=== PATIENT | female | born 1975 | race Caucasian/White ===

== ENCOUNTER → 2020-02-16 10:32 | Outpatient (CLI) | payer OTHER, SELFPAY ==
--- NOTE | ~2020-02-16 | MM_ITS ---
EXAMINATION: MM screening see BI w arnaldo HISTORY: Screening mammogram TECHNIQUE: Craniocaudal and mediolateral oblique 3-D tomosynthesis images were obtained and synthetic 2-D images were generated. CAD analysis was submitted and interpreted. COMPARISON: Comparison to multiple prior studies sequentially, with oldest reviewed study dated 05/15. BREAST PARENCHYMAL COMPOSITION: There are scattered areas of fibroglandular density. FINDINGS: There is a focal asymmetry anteriorly in the upper outer quadrant of the left breast. The r ight breast is stable without evidence for malignancy. IMPRESSION: 1. Focal left breast asymmetry, upper outer quadrant anteriorly. 2. Additional mammographic views and possible breast ultrasound are recommended. BI-RADS Category 0: Incomplete: Needs additional imaging evaluation. Reviewed, dictated and finalized at location A. IMPRESSION: 1. Focal left breast asymmetry, upper outer quadrant anteriorly. 2. Additional mammographic views and possible breast ultrasound are recommended . BI-RADS Category 0: Incomplete: Needs additional imaging evaluation.
== END ==
PROVIDERS: Visit Provider Obstetrics & Gynecology
DX: Z12.31 Encounter for screening mammogram for malignant neoplasm of breast (principal); R92.8 Other abnormal and inconclusive findings on diagnostic imaging of breast
CPT/HCPCS: 77063; 77067

== ENCOUNTER 2020-02-23 11:48 | Outpatient (CLI) | payer OTHER, SELFPAY ==
--- NOTE | ~2020-02-23 | MMUS_ITS ---
EXAMINATION: MM diagnostic mammo unilat LT, US breast LT complete HISTORY: Focal left breast mammographic asymmetry, upper outer quadrant anteriorly on 02/16/2020 [facility] mammogram TECHNIQUE: Additional 3-D tomosynthesis images of were performed and synthetic 2-D images were genera zofia. CAD analysis was submitted and interpreted. High resolution breast ultrasound was performed. COMPARISON: 02/16/2020 bilateral digital screening mammogram FINDINGS: MAMMOGRAPHIC FINDINGS: Occasional subcentimeter masses are suggested in the left breast. Ultrasound correlation of the compl ete left breast was performed. ULTRASOUND: 8:00 3 cm from nipple: 4.6 x 8.2 x 7.5 mm multi septated cysts, without any internal vascularity. Subareolar area: Approximately 2.5 x 8.5 mm septated cystic structure, without internal vascularity o r suspicious shadowing. IMPRESSION: 1. Benign findings 2. Routine annual mammographic screening follow-up is recommended. BI-RADS Category 2: Benign finding(s). Reviewed, dictated and finalized at location A. IMPRESSION: 1. Benign findings 2. Routine annual mammographic screening follow-up is recommended. BI-RADS Category 2: Benign finding(s).
== END 2020-02-23 11:49 | disposition home or self-care (01) ==
PROVIDERS: PCP Family Medicine; Visit Provider Obstetrics & Gynecology
DX: R92.8 Other abnormal and inconclusive findings on diagnostic imaging of breast (principal)
CPT/HCPCS: 76641; 77065

== ENCOUNTER 2020-08-17 10:52 | Outpatient (NON) | payer OTHER, SELFPAY ==
[2020-08-17 22:02] LABS: SARS-CoV-2 RNA PCR Negative
== END 2020-08-17 10:53 ==
PROVIDERS: PCP Family Medicine; Visit Provider Nurse Practitioner Adult Health
DX: Z20.828 Contact with and (suspected) exposure to other viral communicable diseases (principal)
CPT/HCPCS: 87635; C9803; U0003

== ENCOUNTER 2021-01-27 12:20 | Outpatient (CLI) | payer OTHER, SELFPAY ==
--- NOTE | ~2021-01-27 | MMUS_ITS ---
EXAMINATION: MM diagnostic see BI w arnaldo, US breast BI limited HISTORY: Left mastodynia TECHNIQUE: Craniocaudal, mediolateral, and mediolateral oblique 3-D tomosynthesis images of the breas ts were performed and synthetic 2-D images were generated. CAD analysis was submitted and interpreted . High resolution limited bilateral breast ultrasound was performed. COMPARISON: 02/23/2020, 02/16/2020, 11/06/2018, 10/24/2018 BREAST PARENCHYMAL COMPOSITION: There are scattered areas of fibroglandular density. FINDINGS: MAMMOGRAPHIC FINDINGS: Right breast: There is a 4 mm obscured oval low-density mass in the middle third of the outer breast at the 9:00 location 4 cm from the nipple. No suspicious calcification or architectural distortion ar e identified. Left breast: There is no evidence of suspicious mass, calcification, or architectural distortion to suggest malignancy. There has been no suspicious interval change. No mammographic correlate is identi fied for the patient's reported left breast pain. ULTRASOUND: Right breast: There is a 4 mm x 3 mm oval, circumscribed, parallel, hypoechoic mass at 10:00 location 2 cm from the nipple with no posterior features or internal vascularity corresponding to the mammogr aphic finding in question. Left breast: There is a stable cluster of microcysts at the 8:00 location 3 cm from the nipple. No so nographic correlate is identified for the patient's left breast pain. IMPRESSION: 1. Probably benign right breast mass and no specific mammographic or sonographic correlate identified for the patient's left breast pain Further evaluation of the left breast at this time should be base d on clinical assessment. Continued follow-up physical examination is recommended. 2. Recommend 6 month follow-up right diagnostic mammogram and ultrasound. BI-RADS category 3, probably benign findings. Reviewed, dictated and finalized at location A. IMPRESSION: 1. Probably benign right breast mass and no specific mammographic or sonographi c correlate identified for the patient's left breast pain Further evaluation of the left breast at this time should be based on clinical assessment. Continued follow-up physical examination is recommended. 2. Recommend 6 month follow-up right diagnostic mammogram and ultrasound. BI-RADS category 3, probably benign findings.
== END 2021-01-27 12:21 | disposition home or self-care (01) ==
LOC: ANHIMG 12:22
PROVIDERS: PCP Nurse Practitioner Adult Health; Visit Provider Obstetrics & Gynecology
DX: N64.4 Mastodynia (principal); R92.8 Other abnormal and inconclusive findings on diagnostic imaging of breast
CPT/HCPCS: 76642; 77062; 77066; G0279

== ENCOUNTER 2021-02-15 09:31 | Outpatient (CLI) | payer OTHER, SELFPAY | END 2021-02-15 09:32 | disposition home or self-care (01) | LOC: ANHCOVIDVC 09:31 | PROVIDERS: PCP Nurse Practitioner Adult Health | DX: Z23 Encounter for immunization (principal) | CPT/HCPCS: 0001A; 91300 ==

== ENCOUNTER 2021-03-08 09:30 | Outpatient (CLI) | payer OTHER, SELFPAY | END 2021-03-08 09:31 | LOC: ANHCOVIDVC 09:30 | PROVIDERS: PCP Nurse Practitioner Adult Health | DX: Z23 Encounter for immunization (principal) | CPT/HCPCS: 0002A; 91300 ==

== ENCOUNTER 2021-04-11 21:50 | Emergency (ER) | payer OTHER, SELFPAY ==
[2021-04-11 22:15] VITALS: BP 137/83; PULSE 67; RESP 18; TEMP 36.3; O2SAT 100
[2021-04-12 00:05] LABS: Basophils Percent Auto 0.1 % (0.2-1.2); Eosinophils Percent Auto 0.1 % (0-4.4); Hematocrit 44.7 % (37.0-47.0); Hemoglobin 15.2 g/dL (12.0-15.0); Immature Granulocyte Absolute 0.02 K/mm3 (0.00-0.031); Immature Granulocyte Percent A 0.2 % (0-0.5); Lymphocytes Percent Auto 24.3 % (18.3-44.2); Mean Corpuscular Hemoglobin 30.1 pg (26-34); Mean Corpuscular Volume 88.5 fl (80-100); Mean Platelet Volume 9.8 fl (7.4-10.4); Monocytes Absolute Auto 0.5 K/mm3 (0.1-0.6); Monocytes Percent Auto 5.3 % (2.6-8.5); Platelet Count Result 257 k/mm3 (150-375); Red Blood Count 5.05 M/mm3 (4.2-5.4); Red Cell Distribution Width 12.1 % (11.5-14.5); White Blood Count 8.6 K/mm3 (4.5-10.0)
[2021-04-12] MEDS: SODIUM CHLORIDE 0.9% IV 1,000 ML 999 ML IV CONT (00:05)
[2021-04-12] MEDS: diphenhydrAMINE HCl INJ 50 MG/ML VIAL 25 MG IV PUSH (00:05)
[2021-04-12] MEDS: METOCLOPRAMIDE HCL INJ 10 MG/2 ML VIAL IV PUSH (00:05)
[2021-04-12] MEDS: KETOROLAC 30 MG/ML VIAL (*BKC) IV PUSH (00:05)
--- NOTE | 2021-04-12 00:19 | ED.GENADULT ---
HPI - General Adult General Chief complaint: Headache Stated complaint: nausea, headache Time Seen by Provider: 04/11/21 23:36 Source: patient History of Present Illness HPI narrative: Patient is a 45 y/o female complaining of headache since 6:30 PM today. She states that her headache is located mostly in the right frontal region. She describes her headache as an ache and rates it as 5/10. She has some nausea, but no vomiting. She took Excedrin which did not help. Related Data Allergies Allergy/AdvReac Type Severity Reaction Status Date / Time aspirin AdvReac Unknown Verified 06/13/17 15:23 Review of Systems Constitutional: Constitutional: Denies chills, Denies fever(s), Reports headache(s) and Denies weakness Eyes: Eyes: Denies blurry vision ENT: Reports headache(s) and Denies neck pain Cardiovascular: Cardiovascular: Denies chest pain and Denies dyspnea Respiratory: Respiratory: Denies cough and Denies dyspnea Gastrointestinal: Gastrointestinal: Denies abdominal pain, Denies diarrhea, Reports nausea and Denies vomiting Genitourinary: Genitourinary: Denies hematuria and Denies dysuria Musculoskeletal: Musculoskeletal: Denies back pain and Denies neck pain Neurologic: Reports headache(s) and Denies weakness [facility] Social History Social History Gender identity (if verbalized by the patient): Female Exam Const: General: no acute distress and well developed Orientation/consciousness: oriented to person, oriented to place, oriented to time and patient oriented x3 HENMT: Head: normocephalic Ears: external ears normal General nose exam: Normal external nose present Eyes: General: appearance normal, both eyes and all related structures Conjunctivae: conjunctivae normal Neck: Neck: normal visual inspection and full ROM Chest: Chest palpation & inspection: normal inspection of the chest and no tenderness Resp: Effort & Inspection: normal respiratory effort Auscultation: clear to auscultation bilaterally Cardio: Rate: regular rate Rhythm: regular rhythm GI: GI Palp: No abdominal tenderness and Yes Soft to palpation Skin: General skin exam: normal color and turgor normal Neuro: General: oriented to person, oriented to place, oriented to time and patient oriented x3 Cranial nerves: Yes CN's II-XII intact bilaterally Cognition (Neuro): normal cognition Speech: normal speech Motor exam (neuro): 5/5 motor strength present throughout Sensory Exam: normal sensation Coordination: [id number] test normal and [id number] test normal Extrem: General: normal to inspection, full ROM and no pedal edema Psych: Appearance: grossly normal Mental Status: mental status grossly normal Affect: normal affect Course Reevaluation(s) Reevaluation #1: Rechecked. Patient feels better and rates his pain as /10. Date: 04/12/21 Time: 00:37 Vital Signs Vital signs: Vital Signs Temperature 36.3 C L 04/11/21 22:15 Pulse Rate 67 04/11/21 22:15 Respiratory Rate 18 04/11/21 22:15 Blood Pressure 137/83 04/11/21 22:15 Pulse Oximetry 100 04/11/21 22:15 Temperature 36.2 C L 04/12/21 00:45 Pulse Rate 78 04/12/21 00:45 Respiratory Rate 16 04/12/21 00:45 Blood Pressure 121/74 04/12/21 00:45 Pulse Oximetry 100 04/12/21 00:45 Medical Decision Making Vital Signs Vital Signs: Vital Signs Temperature 36.3 C L 04/11/21 22:15 Pulse Rate 67 04/11/21 22:15 Respiratory Rate 18 04/11/21 22:15 Blood Pressure 137/83 04/11/21 22:15 Pulse Oximetry 100 04/11/21 22:15 Temperature 36.2 C L 04/12/21 00:45 Pulse Rate 78 04/12/21 00:45 Respiratory Rate 16 04/12/21 00:45 Blood Pressure 121/74 04/12/21 00:45 Pulse Oximetry 100 04/12/21 00:45 Lab Data Result diagrams: 04/11/21 23:58 04/11/21 23:58 Labs: Lab Results 04/11/21 04/11/21 Range/Units 23:58 23:58 WBC 8.6 (4.5-10.0)
[2021-04-12 00:20] LABS: Anion Gap 11 mmol/L (8-16); Blood Urea Nitrogen 8 mg/dL (7-17); Calcium 10.6 mg/dL (8.4-10.2); Carbon Dioxide 21 mmol/L (22-30); Chloride 106 mmol/L (98-107); Estimated CRCL calculation 68 ml/min; Estimated Glomerular Filt Rate > 60; Glucose 110 mg/dL (65-105); Sodium 138 mmol/L (137-145)
[2021-04-12 00:45] VITALS: BP 121/74; PULSE 78; RESP 16; TEMP 36.2; O2SAT 100
== END 2021-04-12 00:46 | disposition home or self-care (01) ==
PROVIDERS: Emergency Provider Emergency Medicine; PCP Nurse Practitioner Adult Health
DX: G43.909 Migraine, unspecified, not intractable, without status migrainosus (principal)
CPT/HCPCS: 36415; 80048; 85025; 96361; 96374; 96375; 99284; J1200; J1885; J2765; J7030

== ENCOUNTER 2021-08-18 12:58 | Outpatient (CLI) | payer OTHER, SELFPAY ==
--- NOTE | ~2021-08-18 | MMUS_ITS ---
EXAMINATION: MM diagnostic see RT w arnaldo, US breast RT limited HISTORY: Follow-up right breast mass TECHNIQUE: Additional 3-D tomosynthesis images of the right breast were performed and synthetic 2-D i mages were generated. CAD analysis was submitted and interpreted. High resolution Limited right breas t ultrasound was performed. COMPARISON: Comparison to multiple prior studies sequentially, with oldest reviewed study dated 11/2015. BREAST PARENCHYMAL COMPOSITION: Breast composed of scattered areas of fibroglandular density. FINDINGS: MAMMOGRAPHIC FINDINGS: There are no suspicious masses, calcifications or architectural distortion in the right breast to sug gest malignancy. ULTRASOUND: Limited right breast ultrasound: Normal heterogeneous echotexture without focal solid or cystic mass. IMPRESSION: 1. No evidence for malignancy in the right breast. 2. Routine yearly screening mammogram and regular clinical breast examination are recommended. BI-RADS Category 1: Negative Reviewed, dictated and finalized at location A. IMPRESSION: 1. No evidence for malignancy in the right breast. 2. Routine yearly screening mammogram and regular clinical breast examination a re recommended. BI-RADS Category 1: Negative
== END 2021-08-18 12:59 | disposition home or self-care (01) ==
LOC: ANHIMG 13:00
PROVIDERS: PCP Nurse Practitioner Adult Health; Visit Provider Obstetrics & Gynecology
DX: R92.8 Other abnormal and inconclusive findings on diagnostic imaging of breast (principal)
CPT/HCPCS: 76642; 77061; 77065; G0279

== ENCOUNTER 2021-10-04 01:47 | Day surgery (SDC) | payer OTHER, SELFPAY ==
[2021-09-15 10:48] VITALS: BMI 25.0
[2021-10-04 07:51] VITALS: BP 129/79; PULSE 89; RESP 16; TEMP 36.4; O2SAT 100
[2021-10-04] MEDS: LACTATED RINGERS 1,000 ML 150 ML IV CONT (08:00)
--- NOTE | 2021-10-04 08:17 | PM.HPGS ---
History of Present Illness History of Present Illness Consent: Risks, benefits, and alternatives have been discussed and questions answered. Patient agrees to proceed with procedure. Chief complaint: neoplasm screening Narrative: Anh Carlton is a 46 year old female here for first screening colonoscopy Review of Systems Constitutional: Constitutional: Denies headache(s) and Denies weakness Eyes: Eyes: Denies blurry vision ENT: Reports Normal hearing present, Denies headache(s) and Denies neck pain Cardiovascular: Cardiovascular: Denies chest pain and Denies dyspnea Respiratory: Respiratory: Denies dyspnea Gastrointestinal: Gastrointestinal: Reports no additional gastrointestinal complaints Genitourinary: Genitourinary: Denies dysuria Musculoskeletal: Musculoskeletal: Denies neck pain Integumentary/Breasts: Skin/Breast: Denies dry skin Neurologic: Reports Normal hearing present, Denies headache(s) and Denies weakness Psychiatric: Psychiatric: Denies anxiety Endocrine: Endocrine: Denies change in body appearance Hematologic/Lymphatic: Hematologic/Lymphatic: Denies easy bleeding Allergic/Immunologic: Allergic/Immunologic: Denies urticaria [facility] Past Medical History Medical History (Updated 10/04/21 @ 08:18 by Link Lopez MD) Colon cancer screening Migraine Social History Social History Smoking status: Never smoker Alcohol intake: current Alcohol use details: rarely Living arrangements: with family Gender identity (if verbalized by the patient): Female Spiritual care concerns: No Meds Home Medications and Allergies Home Medications Medication Instructions Recorded Confirmed Type diclofenac sodium 75 mg PO DAILY PRN 09/15/21 10/04/21 History qlzdfobzedyb-jaae-evuws acid 1 tablet PO DAILY 09/15/21 10/04/21 History [Centrum Women] norgestimate-ethinyl estradiol 1 tablet PO DAILY 09/15/21 10/04/21 History [Tri-Estarylla] ubrogepant [Ubrelvy] 100 mg PO DAILY PRN 09/15/21 10/04/21 History Allergies Allergy/AdvReac Type Severity Reaction Status Date / Time aspirin AdvReac Unknown Other Verified 10/04/21 07:50 Vital Signs Vital Signs - 24 hr 10/04/21 07:51 Temperature 97.5 F L Pulse Rate 89 Respiratory Rate 16 Blood Pressure 129/79 Pulse Oximetry 100 Exam Const: General: comfortable and no acute distress HENMT: General nose exam: Normal nares present Eyes: General: appearance normal, both eyes and all related structures Neck: Neck: no JVD Resp: Auscultation: clear to auscultation bilaterally Cardio: Rate: regular rate Rhythm: regular rhythm GI: Inspection: non-distended GI Palp: Yes Soft to palpation Skin: General skin exam: normal color Neuro: General: gait normal Speech: normal speech Extrem: General: normal to inspection Psych: Mental Status: mental status grossly normal Assessment and Plan Assessment and plan (1) Colon cancer screening: Code(s): Z12.11 - Encounter for screening for malignant neoplasm of colon Status: Acute Assessment and Plan: colonoscopy
[2021-10-04 08:36] VITALS: BP 95/53; PULSE 88; RESP 20; O2SAT 97
[2021-10-04 08:46] VITALS: BP 110/70; PULSE 65; RESP 15; O2SAT 100
[2021-10-04 08:56] VITALS: BP 123/77; PULSE 66; RESP 14; O2SAT 100
== END 2021-10-04 09:15 | disposition home or self-care (01) ==
PROVIDERS: PCP Nurse Practitioner Adult Health; Visit Provider Internal Medicine Gastroenterology
PROC: 0DJD8ZZ Inspection of Lower Intestinal Tract, Via Natural or Artificial Opening Endoscopic (ICD-10-PCS; CPT 45378; principal; 2021-10-04 08:30)
DX: Z12.11 Encounter for screening for malignant neoplasm of colon (principal); K57.30 Diverticulosis of large intestine without perforation or abscess without bleeding; K64.8 Other hemorrhoids
CPT/HCPCS: 45378; J2704; J7120

== ENCOUNTER 2022-04-05 08:10 | Outpatient (CLI) | payer OTHER, SELFPAY ==
--- NOTE | ~2022-04-05 | MM_ITS ---
EXAMINATION: MM screening see BI w arnaldo HISTORY: Screening mammogram TECHNIQUE: Craniocaudal and mediolateral oblique 3-D tomosynthesis images were obtained and synthetic 2-D images were generated. CAD analysis was submitted and interpreted. COMPARISON: 08/18/2021 diagnostic right mammogram and limited right breast ultrasound 01/27/2021 bilateral diagnostic mammography and Limited bilateral breast ultrasound 02/23/2020 diagnostic left mammogram and left complete breast ultrasound 02/16/2020 bilateral screening mammogram 11/06/2018 bilateral diagnostic mammogram 10/24/2018 bilateral screening mammogram BREAST PARENCHYMAL COMPOSITION: The breasts are heterogeneously dense, which may obscure small masses . FINDINGS: There is no evidence of suspicious mass, calcification, or architectural distortion to sugg est malignancy in either breast. There has been no suspicious interval change. IMPRESSION: 1. No mammographic evidence of malignancy. 2. Recommend routine screening mammography in one year. BI-RADS Category 1: Negative Reviewed, dictated and finalized at location A.
== END 2022-04-05 08:11 | disposition home or self-care (01) ==
LOC: ANHIMG 08:11
PROVIDERS: PCP Nurse Practitioner Adult Health; Visit Provider Obstetrics & Gynecology
DX: Z12.31 Encounter for screening mammogram for malignant neoplasm of breast (principal)
CPT/HCPCS: 77063; 77067

== ENCOUNTER 2023-08-06 07:34 | Outpatient (CLI) | payer OTHER, SELFPAY ==
--- NOTE | ~2023-08-06 | MM_ITS ---
EXAMINATION: MM screening [facility] BI w arnaldo HISTORY: Screening mammogram TECHNIQUE: Craniocaudal and mediolateral oblique 3-D tomosynthesis images were obtained and synthetic 2-D images were generated. CAD analysis was submitted and interpreted. COMPARISON: 04/05/2022, 08/18/2021, 01/27/2021, 02/16/2020 BREAST PARENCHYMAL COMPOSITION: There are scattered areas of fibroglandular density. FINDINGS: No suspicious mass, calcification, or architectural distortion are identified in either livia ast to suggest malignancy. There has been no suspicious interval change. IMPRESSION: 1. No mammographic evidence of malignancy. 2. Recommend routine screening mammography in one year. BI-RADS Category 1: Negative Reviewed, dictated and finalized at location A.
== END 2023-08-06 07:35 | disposition home or self-care (01) ==
LOC: ANHIMG 07:35
PROVIDERS: PCP Nurse Practitioner Adult Health; Visit Provider Obstetrics & Gynecology
DX: Z12.31 Encounter for screening mammogram for malignant neoplasm of breast (principal)
CPT/HCPCS: 77063; 77067

== ENCOUNTER 2023-09-04 09:32 | Outpatient (CLI) | payer OTHER, SELFPAY ==
--- NOTE | ~2023-09-04 | XR_ITS ---
XR elbow RT 2V DATE: 09/04/2023 09:48 INDICATION: Right elbow pain TECHNIQUE: AP and lateral views COMPARISON: None FINDINGS: No fracture or dislocation or joint effusion. No periosteal reaction or bone destruction. IMPRESSION: Negative Reviewed, dictated and finalized at location L. IMPRESSION: Negative
[2023-09-04 18:33] LABS: Alanine Aminotransferase 21 U/L (6-35); Albumin Level 4.4 g/dL (3.5-5.1); Alkaline Phosphatase 47 U/L (38-126); Anion Gap 4 mmol/L (8-16); Aspartate Amino Transferase 34 U/L (14-36); Bilirubin,Total 0.5 mg/dL (0.2-1.3); Blood Urea Nitrogen 12 mg/dL (7-17); Calcium 9.4 mg/dL (8.4-10.2); Carbon Dioxide 29 mmol/L (22-30); Chloride 105 mmol/L (98-107); Cholesterol 194 mg/dL (0-200); Estimated Glomerular Filt Rate > 60; Glucose 84 mg/dL (65-110); HDL Direct 75 mg/dL; Potassium 4.2 mmol/L (3.4-5.0); Sodium 138 mmol/L (137-145); Triglycerides 171 mg/dL (<150); Uric Acid 3.5 mg/dL (2.5-7.5)
[2023-09-04 18:44] LABS: LDL Cholesterol Direct 82 mg/dL
[2023-09-04 19:10] LABS: Hematocrit 45.3 % (37.0-47.0); Hemoglobin 14.5 g/dL (12.0-15.0); Mean Corpuscular Hemoglobin 30.1 pg (26-34); Mean Platelet Volume 10.8 fl (7.4-10.4); Platelet Count Result 280 k/mm3 (150-375); Red Blood Count 4.82 M/mm3 (4.2-5.4); Red Cell Distribution Width 12.6 % (11.5-14.5); White Blood Count 7.1 K/mm3 (4.5-10.0)
[2023-09-04 20:08] LABS: Erythrocyte Sedimentation Rate 18 mm/hr (0-20)
[2023-09-04 21:10] LABS: Vitamin D 25 Hydroxy 43.8 ng/mL
== END 2023-09-04 09:33 | disposition home or self-care (01) ==
LOC: ANHBWCLAB 09:34
PROVIDERS: PCP Nurse Practitioner Adult Health; Visit Provider Nurse Practitioner Adult Health
DX: Z13.9 Encounter for screening, unspecified (principal); M25.50 Pain in unspecified joint; M25.529 Pain in unspecified elbow; R53.83 Other fatigue
CPT/HCPCS: 36415; 73070; 80053; 80061; 82306; 82607; 84443; 84550; 85027; 85652

== ENCOUNTER 2023-10-02 12:56 | Outpatient (CLI) | payer OTHER, SELFPAY ==
--- NOTE | 2023-10-02 14:00 | NEURO_ITS ---
Impression: # Complains of right elbow pain. # Normal Nerve Conduction Study. # No Carpal Tunnel Syndrome or ulnar neuropathy. # Normal needle/EMG exam. Nerve Conduction Studies Anti Sensory Summary Table Stim Site NR Peak (ms) P-T Amp (?V) Site1 Site2 Delta-P (ms) Dist (cm) Jesus (m/s) Right Median Anti Sensory (2-3nd Digit) Wrist 2.7 84.7 Wrist 2-3nd Digit 2.7 14.0 52 Wrist 2.8 82.1 Wrist 2-3nd Digit 2.7 14.0 52 Right Radial Anti Sensory (Base 1st Digit) Wrist 1.8 17.2 Wrist Base 1st Digit 1.8 0.0 Right Ulnar Anti Sensory (5th Digit) Wrist 2.6 73.6 Wrist 5th Digit 2.6 14.0 54 Motor Summary Table Stim Site NR Onset (ms) O-P Amp (mV) Site1 Site2 Delta-0 (ms) Dist (cm) Jesus (m/s) Right Median Motor (Abd Poll Brev) Wrist 2.4 12.3 Elbow Wrist 4.6 26.0 57 Elbow 7.0 10.4 Right Ulnar Motor (Abd Dig Minimi) Wrist 2.0 9.0 A Elbow Wrist 4.7 27.0 57 A Elbow 6.7 8.7 F Wave Studies NR F-Lat (ms) L-R F-Lat (ms) Right Median (Mrkrs) (Abd Poll Brev) 25.39 Right Ulnar (Mrkrs) (Abd Dig Min) 25.94 EMG Side Muscle Nerve Root Ins Act Fibs Amp Dur Recrt Comment Right 1stDorInt Ulnar C8-T1 Nml Nml Nml Nml Nml Right Ext Indicis Radial (Post Int) C7-8 Nml Nml Nml Nml Nml Right Ext Digitorum Radial (Post Int) C7-8 Nml Nml Nml Nml Nml Right BrachioRad Radial C5-6 Nml Nml Nml Nml Nml Right PronatorTeres Median C6-7 Nml Nml Nml Nml Nml Right Abd Poll Brev Median C8-T1 Nml Nml Nml Nml Nml Right ABD Dig Min Ulnar C8-T1 Nml Nml Nml Nml Nml MTDD
== END 2023-10-02 12:57 | disposition home or self-care (01) ==
LOC: ANHNEURO 12:57
PROVIDERS: PCP Nurse Practitioner Adult Health; Visit Provider Nurse Practitioner Adult Health
DX: M79.601 Pain in right arm (principal)
CPT/HCPCS: 95886; 95909

== ENCOUNTER 2024-08-08 09:38 | Outpatient (CLI) | payer OTHER, SELFPAY ==
--- NOTE | ~2024-08-08 | MM_ITS ---
EXAMINATION: MM screening see BI w arnaldo HISTORY: Screening TECHNIQUE: Craniocaudal and mediolateral oblique 3-D tomosynthesis images were obtained and synthetic 2-D images were generated. CAD analysis was submitted and interpreted. COMPARISON: Comparison to multiple prior studies sequentially, with oldest reviewed study dated 02/15. BREAST PARENCHYMAL COMPOSITION: Not dense: There are scattered areas of fibroglandular density. FINDINGS: There is no evidence of suspicious mass, calcification, or architectural distortion to sugg est malignancy in either breast. There has been no suspicious interval change. IMPRESSION: 1. No mammographic evidence of malignancy. 2. Recommend routine screening mammography in one year. BI-RADS Category 1: Negative Reviewed, dictated and finalized at location B.
== END 2024-08-08 09:39 | disposition home or self-care (01) ==
LOC: ANHIMG 09:40
PROVIDERS: PCP Nurse Practitioner Adult Health; Visit Provider Obstetrics & Gynecology
DX: Z12.31 Encounter for screening mammogram for malignant neoplasm of breast (principal)
CPT/HCPCS: 77063; 77067

== ENCOUNTER 2025-02-14 09:02 | Emergency (ER) | payer OTHER, SELFPAY ==
[2025-02-14 09:50] VITALS: BP 132/75; PULSE 70; RESP 16; TEMP 36.3; O2SAT 100
--- NOTE | 2025-02-14 10:24 | ED.GENADULT ---
HPI - General Adult General Chief complaint: Upper Respiratory Infection Stated complaint: SORE THROAT Time Seen by Provider: 02/14/25 10:24 Source: patient Mode of arrival: ambulatory Limitations: no limitations History of Present Illness HPI narrative: 49-year-old female patient presents to [facility] with complaints of a sore throat x3 days. Denies fevers body aches or chills. Patient states she has had a runny nose, congestion and some drainage to the back of her throat. Denies any coughing, chest pain, shortness of breath. Denies any abdominal pain nausea vomiting or diarrhea. Patient states she has been taking Sudafed and Tylenol for her symptoms. Related Data Home Medications ?Medication ?Instructions ?Recorded ?Confirmed ?Last Taken ?Type multivitamin-ferrous 1 tablet PO DAILY 09/15/21 09/08/24 10/01/21 History fumarate-folic acid 18 mg-400 mcg tablet (Centrum Women) levonorgestrel-ethinyl estradiol 1 tablet PO DAILY 09/08/24 09/08/24 Unknown History 0.1 mg-20 mcg tablet (Vienva) Allergies Allergy/AdvReac Type Severity Reaction Status Date / Time aspirin AdvReac Unknown Other Verified 02/14/25 10:21 Review of Systems Review of Systems: CONSTITUTIONAL: Denies fever, chills, or sweats. EYES: Denies visual changes, redness, or discharge. ENT: positive rhinorrhea, congestion, Positive sore throat, denies otalgia. CARDIOVASCULAR: Denies chest pain, palpitations, or edema. RESPIRATORY: Denies cough or dyspnea. GASTROINTESTINAL: Denies abdominal pain, nausea, vomiting, or diarrhea. GENITOURINARY: Denies dysuria or hematuria. SKIN: Denies rash or itching. MUSCULOSKELETAL: Denies back pain, joint pain, or myalgia. NEUROLOGIC: Denies headache, numbness, or weakness. PSYCHIATRIC: Denies anxiety or depression. [facility] Past Medical History Medical History IBS (irritable bowel syndrome) Colon cancer screening Migraine Family History Family History Father Diabetes mellitus Mother Hypertension Grandparent Depression Social History Social History Smoking status: Never smoker Alcohol intake: current Alcohol use details: rarely 1-2 drinks (Beers) a week Substance use: never Lack of Transportation: No Lack of Food: Never True Current Housing: I Have Housing Concerned About Future Housing: No Difficulty Paying Gas/Electric Bills: No Difficulty Paying for Meds: No Currently Unemployed: No Education: Bachelor's Degree Difficulty w/ Childcare or Family Care: No Living arrangements: with family Occupation/Education: occupation 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 Gender identity (if verbalized by the patient): Female Spiritual care concerns: No Agree to blood products: Yes Comments At the time of my signature I agree with nursing past medical history, surgical, social, and family history. There is no relevant family history pertinent to the presenting complaint. Exam Narrative: GENERAL: Well-appearing, well-nourished, and in no acute distress. HEAD: Normocephalic, atraumatic. EYES: PERRLA and EOMI. ENT: Nares with erythema edema noted bilaterally, no rhinorrhea or epistaxis. Mucous membranes moist. posterior pharynx with no erythema, tonsillar enlargement, exudates or lesions present. Bilateral TMs are clear no erythema or foreign bodies to the canal. NECK: Supple. No lymphadenopathy CHEST: Clear to auscultation. No respiratory distress. HEART: Regular rate and rhythm. No murmur heard. Normal peripheral pulses. ABDOMEN: Soft, nontender, nondistended, normal active bowel sounds. EXTREMITIES: Normal range of motion. No edema. SKIN: Warm, dry, no rash. NEURO: No focal deficits. Alert and oriented x3. Course Course Level of Care: Express Care Visit Vital Signs Vital signs: Vital Signs Temperature 36.3 C L 02/14/25 09:50 Pulse Rate 70 02/14/25 09:50 Respiratory Rate 16 02/14/25 09:50 Blood Pressure 132/75 02/14/25 09:50 Pulse Oximetry 100 02/14/25 09:50 Temperature 36.3 C L 02/14/25 09:50 Pulse Rate 70 02/14/25 09:50 Respiratory Rate 16 02/14/25 09:50 Blood Pressure 132/75 02/14/25 09:50 Pulse Oximetry 100 02/14/25 09:50 Vital signs reviewed. Medical Decision Making MDM Narrative Medical decision making narrative: Notify patient that her point of care test for strep is negative. We will send it to lab for culture and if the culture comes back positive then we will call her in an antibiotic at that time. Discussed with patient I do not see any evidence of a bacterial infection at this time this is most likely due to seasonal allergies or sinus drainage. Discussed with patient to continue taking her Sudafed I would also recommend adding a 24 hour antihistamine something such as Zyrtec, Claritin Hedy as well as a Flonase to help dry up any drainage that could be going to the back of the throat. Discussed with her that she can also do warm salt water gargles, hot tea and honey to help with any throat pain and may continue taking [id number] Tylenol and ibuprofen. Patient verbalized understanding denies any other questions or concerns at this time. Differential Diagnosis Differential Diagnosis: Differential diagnosis: Viral pharyngitis, pharyngitis, group A strep, infectious mononucleosis, gonococcal pharyngitis, exudative pharyngitis, oral candidiasis. Chronic allergies, postnasal drip, GERD, abscess formation, but glottitis, retropharyngeal abscess formation, or airway obstruction. Vital Signs Vital Signs: Vital Signs Temperature 36.3 C L 02/14/25 09:50 Pulse Rate 70 02/14/25 09:50 Respiratory Rate 16 02/14/25 09:50 Blood Pressure 132/75 02/14/25 09:50 Pulse Oximetry 100 02/14/25 09:50 Temperature 36.3 C L 02/14/25 09:50 Pulse Rate 70 02/14/25 09:50 Respiratory Rate 16 02/14/25 09:50 Blood Pressure 132/75 02/14/25 09:50 Pulse Oximetry 100 02/14/25 09:50 Critical Care Time Critical Care Time Critical Care Time: No Discharge Plan Discharge Clinical Impression: Acute seasonal allergic rhinitis, Pharyngitis Patient Disposition: Home Condition: Stable Instructions: Antibiotic Form, Pharyngitis (ED) Additional Instructions: A sore throat can be caused by an infection from a virus or bacteria. Sore throat can also be caused by postnasal drip, allergies, and exposure to smoke. A viral sore throat last 3-4 days and cannot be treated with antibiotics. One type of sore throat virus, infectious mononucleosis ( mono ), can last for 3 weeks and older children. The germs that cause these infections are contagious and can be spread by coughing or sharing drinks or utensils. Contact her primary care physician or go to the ER if: Your trouble breathing or swallowing because her throat is swollen or sore. You're drooling because it hurts too much to swallow. You're painful lump in your throat go away after 5 days. You're fever is higher than 10 2??F or last longer than 3 days. You have confusion. You are blood in your throat. You're sore throat should feel better within 3-5 days without treatment if it is caused by virus. You may need the following: Ibuprofen or Tylenol as needed for pain or fever Gargle warm salt water Drink more liquids, cold or warm drinks may help soothe her throat. Humidifier in your room. Cough drops, ice, soft foods, or popsicles may help soothe her throat. A spoonful of honey could help with inflammation and soothe her throat. Wash her hands with soap and water, do not share food or drinks, throat away her toothbrush after 72 hours. Patient Language: Paraguayan Prescriptions: No Action Ubrelvy 100 mg tablet 100 mg PO DAILY PRN (Reason: migraines) Qty: 14 3RF levonorgestrel-ethinyl estrad [Vienva] 0.1-20 mg-mcg tablet 1 tablet PO DAILY Centrum Women 18-400 mg-mcg Tablet 1 tablet PO DAILY Follow-up/Referrals: Yue Menard APRN [Primary Care Provider] - Time of Disposition: 10:30
[2025-02-14 10:35] LABS: EDSTREPNEGPOS1 Negative (Negative)
== END 2025-02-14 10:34 | disposition home or self-care (01) ==
PROVIDERS: Emergency Provider Nurse Practitioner Family; PCP Nurse Practitioner Adult Health
DX: J30.2 Other seasonal allergic rhinitis (principal); J02.9 Acute pharyngitis, unspecified
CPT/HCPCS: 87081; 87880; 99213; G0463

== ENCOUNTER 2025-09-09 08:31 | Outpatient (CLI) | payer OTHER, SELFPAY ==
--- OUTSIDE RECORDS SUMMARY | 2025-09-09 08:44 | XMS_ITS | Clinical Summary ---
Author Organization [facility] Address [address] [address] Care Team Providers Care Freight Tallier Name Role Phone Yue Menard ERICK Primary Care Provider [phone] Allergies No known active allergies Medications Tri-Estarylla 0.18/0.215/0.25 mg-35 mcg (28) tablet Take 84 Tablets by mouth daily. 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 Gender Identity Not on file Sexual Orientation Not on file Last Filed Vital Signs Vital Sign Reading Time Taken Comments Blood Pressure 146/83 11/14/2020 2:07 PM ORNAMENTAL BRONZE WORKER Pulse 78 11/14/2020 2:07 PM ORNAMENTAL BRONZE WORKER Temperature 37.3 C (99.1 F) 11/14/2020 2:07 PM ORNAMENTAL BRONZE WORKER Respiratory Rate - - Oxygen Saturation 98% 11/14/2020 2:07 PM ORNAMENTAL BRONZE WORKER Inhaled Oxygen Concentration - - Weight 62.6 kg (138 lb) 11/14/2020 2:07 PM ORNAMENTAL BRONZE WORKER Height 157.5 cm (5' 2) 11/14/2020 2:07 PM ORNAMENTAL BRONZE WORKER Body Mass Index 25.24 11/14/2020 2:07 PM ORNAMENTAL BRONZE WORKER Plan of Treatment Health Maintenance Due Date Last Done Comments DTAP/TDAP/TD VACCINES (1 - Tdap) 1992 HEPATITIS B VACCINES (1 of 3 - 19+ 3-dose series) 08/05 HPV/Cotest (21-29) 1994 CERVICAL CANCER SCREENING 2003 HPV/Cotest (30-65) 2003 PAP SMEAR 2003 BREAST CANCER SCREENING 2013 COLORECTAL SCREENING 2018 Colorectal Cancer Screening 2018 FIT-DNA Q 3 years 2018 FIT/FOBT Q 1 year 2018 Flex Sig/CT Colonography Q 5 years 2018 ZOSTER VACCINE (1 of 2) 2023 INFLUENZA VACCINE (#1) 2025 Insurance CHOICE PLUS Care Teams Freight Tallier Relationship Specialty Start Date End Date Yue Menard ANP [address] [id number] PCP - General 11/14/20
[2025-09-09 19:05] LABS: Hematocrit 46.2 % (37.0-47.0); Hemoglobin 14.8 g/dL (12.0-15.0); Mean Corpuscular HGB Conc 32.0 g/dl (32-36); Mean Corpuscular Hemoglobin 29.9 pg (26-34); Mean Corpuscular Volume 93.3 fl (80-100); Platelet Count Result 265 k/mm3 (150-375); Red Blood Count 4.95 M/mm3 (4.2-5.4); White Blood Count 6.3 K/mm3 (4.5-10.0)
[2025-09-09 19:08] LABS: Alanine Aminotransferase 26 U/L (6-35); Albumin Level 4.3 g/dL (3.5-5.1); Alkaline Phosphatase 60 U/L (38-126); Anion Gap 7 mmol/L (4-12); Aspartate Amino Transferase 51 U/L (14-36); Bilirubin,Total 0.5 mg/dL (0.2-1.3); Blood Urea Nitrogen 16 mg/dL (7-17); Calcium 9.2 mg/dL (8.4-10.2); Carbon Dioxide 26 mmol/L (22-30); Chloride 105 mmol/L (98-107); Cholesterol 229 mg/dL (0-200); Estimated Glomerular Filt Rate > 60; Glucose 84 mg/dL (65-110); HDL Direct 39 mg/dL; Potassium 4.5 mmol/L (3.4-5.0); Sodium 138 mmol/L (137-145); Total Protein 7.6 g/dL (6.3-8.2)
[2025-09-09 19:26] LABS: Free T4 Free Thyroxine 1.16 ng/dL (0.78-2.19)
[2025-09-09 19:43] LABS: Thyroid Stimulating Hormone 1.060 uIU/mL (0.465-4.680)
[2025-09-09 20:02] LABS: Vitamin B12 680.0 pg/mL (239-931)
[2025-09-09 20:59] LABS: Triglycerides 668 mg/dL (<150)
== END 2025-09-09 08:32 | disposition home or self-care (01) ==
PROVIDERS: PCP Nurse Practitioner Adult Health; Visit Provider Nurse Practitioner Adult Health
DX: Z00.00 Encounter for general adult medical examination without abnormal findings (principal); R53.83 Other fatigue
CPT/HCPCS: 36415; 80053; 80061; 82306; 82607; 84439; 84443; 85027

== ENCOUNTER 2025-09-11 07:47 | Outpatient (CLI) | payer OTHER, SELFPAY ==
--- OUTSIDE RECORDS SUMMARY | 2025-09-11 07:50 | XMS_ITS | Clinical Summary ---
Author Organization [facility] Address [address] [facility] [place] [address] Care Team Providers Care Vault Service Mechanic Name Role Phone Yue Menard ERICK Primary Care Provider [phone] Allergies No known active allergies Medications Tri-Estarylla 0.18/0.215/0.25 mg-35 mcg (28) tablet Take 84 Tablets by mouth daily. 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 Gender Identity Not on file Sexual Orientation Not on file Last Filed Vital Signs Vital Sign Reading Time Taken Comments Blood Pressure 146/83 11/14/2020 2:07 PM STEAM BOX OPERATOR Pulse 78 11/14/2020 2:07 PM STEAM BOX OPERATOR Temperature 37.3 C (99.1 F) 11/14/2020 2:07 PM STEAM BOX OPERATOR Respiratory Rate - - Oxygen Saturation 98% 11/14/2020 2:07 PM STEAM BOX OPERATOR Inhaled Oxygen Concentration - - Weight 62.6 kg (138 lb) 11/14/2020 2:07 PM STEAM BOX OPERATOR Height 157.5 cm (5' 2) 11/14/2020 2:07 PM STEAM BOX OPERATOR Body Mass Index 25.24 11/14/2020 2:07 PM STEAM BOX OPERATOR Plan of Treatment Health Maintenance Due Date [...] (#1) 2025 Insurance CHOICE PLUS Care Teams Vault Service Mechanic Relationship Specialty Start Date End Date Yue Menard ANP [address] [id number] PCP - General 11/14/20
[2025-09-11 09:14] LABS: Cholesterol 186 mg/dL (0-200); HDL Direct 46 mg/dL; Triglycerides 311 mg/dL (<150)
== END 2025-09-11 07:48 | disposition home or self-care (01) ==
LOC: ANHLAB 07:48
PROVIDERS: PCP Nurse Practitioner Adult Health; Visit Provider Nurse Practitioner Adult Health
DX: E78.1 Pure hyperglyceridemia (principal)
CPT/HCPCS: 36415; 80061

== ENCOUNTER 2025-10-13 08:05 | Emergency (ER) | payer OTHER, SELFPAY ==
--- NOTE | 2025-10-13 08:11 | ED_ITS ---
HPI - URI/Sore Throat General Chief Complaint: Upper Respiratory Infection Stated Complaint: SINUS CONGESTION Time Seen by Provider: 10/13/25 08:12 Source: patient, RN notes reviewed and old records reviewed Mode of arrival: ambulatory Limitations: no limitations History of Present Illness HPI Narrative: 50-year-old female presents to the [facility] with 7-10 days of increased drainage worse over the last couple of days. Sinus congestion, body aches, denies fevers. Had been taking Sudafed and Flonase with about relief. Denies chest pain or shortness of breath Related Data Home Medications ?Medication ?Instructions ?Recorded ?Confirmed ?Last Taken ?Type multivitamin-ferrous 1 tablet PO DAILY 09/15/21 1 11/09/24 10/01/21 History fumarate-folic acid 18 mg-400 mcg tablet (Centrum Women) Allergies Allergy/AdvReac Type Severity Reaction Status Date / Time aspirin AdvReac Unknown Other Verified 10/13/25 08:32 Review of Systems Review of Systems: All systems reviewed & are unremarkable except as noted in HPI and below Constitutional: Constitutional: Reports no additional constitutional complaints ENT: Reports as per HPI, Reports nasal congestion and Reports nasal discharge Cardiovascular: Cardiovascular: Reports no additional cardiovascular complaints, Denies chest pain and Denies dyspnea Respiratory: Respiratory: Reports no additional respiratory complaints, Denies chest congestion, Denies cough and Denies dyspnea Musculoskeletal: Musculoskeletal: Reports no additional musculoskeletal complaints Integumentary/Breasts: Skin/Breast: Reports system reviewed and no additional complaints, except as docu PMFSH Past Medical History Medical History IBS (irritable bowel syndrome) Colon cancer screening Migraine Family History Family History Father Diabetes mellitus Mother Hypertension Grandparent Depression Social History Social History Smoking status: Never smoker Alcohol intake: current Alcohol use details: rarely 1-2 drinks (Beers) a week Substance use: never Lack of Transportation: No Lack of Food: Never True Current Housing: I Have Housing Concerned About Future Housing: No Difficulty Paying Gas/Electric Bills: No Difficulty Paying for Meds: No Currently Unemployed: No Education: Bachelor's Degree Difficulty w/ Childcare or Family Care: No Living arrangements: with family Occupation/Education: occupation 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 Gender identity (if verbalized by the patient): Female Spiritual care concerns: No Agree to blood products: Yes Comments At the time of my signature, I reviewed and agree with the nursing past medical, surgical, social, and family history. There is no relevant family history pertinent to the patient complaint. Exam Const: General: cooperative, healthy appearing, comfortable, no acute distress, well developed, alert and well nourished Nutritional Appearance: well nourished Orientation/consciousness: patient oriented x3 Limitations: no limitations HENMT: Head: normal to inspection Ears: hearing grossly normal bilaterally, external ears normal, TM's normal bilaterally, EAC's normal, mastoids normal and no periauricular adenopathy Face and sinus: face asymmetric, no ecchymosis, no erythema and sinus tenderness frontal and maxillary Mouth: Yes Normal oral and palatal mucosa present, Yes lip normal, Yes tongue normal and Yes moist mucous membranes Throat: posterior oropharynx normal, uvula midline, postnasal drainage and no uvular edema Eyes: General: appearance normal, both eyes and all related structures Ali gnment and Position: alignment normal Neck: Neck: normal visual inspection, full ROM, no lymphadenopathy and no meningeal signs Chest: Chest palpation & inspection: normal inspection of the chest Resp: Effort & Inspection: normal respiratory effort and able to speak in complete sentences Auscultation: clear to auscultation bilaterally, no crackles, no rales, no rhonchi and no wheezes Cardio: Rate: regular rate Skin: General skin exam: normal color and no rashes or lesions noted Neuro: General: patient oriented x3, gait normal, moves all extremities and no meningeal signs Cognition (Neuro): normal cognition Speech: normal speech Gait exam (Neuro): Normal gait present Extrem: General: normal to inspection, full ROM, capillary refill normal and normal gait Psych: Appearance: grossly normal and well kempt Mental Status: mental status grossly normal Speech and movement: Normal speech and movement present and Clear speech present Affect: normal affect Attitude: cooperative Course Course Level of Care: Express Care Visit Vital Signs Vital signs: Vital Signs Temperature 97.3 F L 10/13/25 08:12 Pulse Rate 100 10/13/25 08:12 Respiratory Rate 16 10/13/25 08:12 Blood Pressure 136/78 10/13/25 08:12 Pulse Oximetry 99 10/13/25 08:12 Temperature 97.3 F L 10/13/25 08:12 Pulse Rate 100 10/13/25 08:12 Respiratory Rate 16 10/13/25 08:12 Blood Pressure 136/78 10/13/25 08:12 Pulse Oximetry 99 10/13/25 08:12 reviewed MDM MDM Narrative Medical decision making narrative: patient sitting in exam room. Patient is nontoxic, vitals stable. Patient presents for a week to 10 days of sinus congestion, pain and increasing pressure, increasing drainage. Due to patient's signs and symptoms will prescribe antibiotic, discussed [id number] products which she verbalized understanding. Patient appropriate for outpatient treatment with close follow-up Discharge instructions reviewed with patient, as well as provided in writing per nursing staff. The instructions also include specific and strict return/GO TO THE ER as well as f/u information. All questions have been answered, and the patient deny any further questions with discharge and discharge plan. Some parts of this dictation were generated by voice recognition software and may contain typographical and/or grammatical inaccuracies. Differential Diagnosis Differential Diagnosis: Differential diagnostic considerations for upper respiratory infection include upper respiratory infection, croup, otitis media, sinusitis, viral infection, bronchitis, influenza, pharyngitis, strep, uvulitis.? Medical Records I have reviewed the following patient records and this information was taken into consideration when formulating the assessment and plan.: previous labs and previous clinic visits Discharge Plan Discharge Clinical Impression: Sinusitis Qualifiers: Sinusitis location: pansinusitis Chronicity: acute Recurrence: not specified as recurrent Qualified Code(s): J01.40 - Acute pansinusitis, unspecified Patient Disposition: Home Condition: Stable Instructions: Antibiotic Form, Sinusitis (ED) Additional Instructions: It is very important to treat your symptoms. Drink plenty of water, Gatorade, Pedialyte, ice pops or Jell-O. -Alternate Tylenol and Motrin per package directions for fever or pain. You can alternate every 4 hours -Antihistamine medication such as Zyrtec/Claritin during the day can help improve symptoms. -doing daily nasal irrigations can help relieve pressure your sinuses. Things like a Neti pot -Use Flonase twice a day for 5 days then daily to help reduce the inflammation and dry up your sinuses. -You can also use Mucinex. Be sure to drink plenty of water with this medication at least 8 ounces with every dose and it is important to drink 8 to 10 glasses of water per day. Water is a natural decongestant -Eat and drink things that are easy to swallow, like tea or soup, or popsicles. -Oral rinses such as: Salt water gargles and/or may use topical anesthetic (eg. Chloraseptic spray) or lozenges to relieve dryness or throat pain). -Frequent hand washing or hand or manager is one of the best ways to prevent spread of infection. -Using a vaporizer or humidifier at night will also help thin secretions and help with coughing up phlegm. -Follow up with primary care provider in 7-10 days if condition is not improving - For new or worsening symptoms go directly to the nearest ER Patient Language: B[place] Prescriptions: New amoxicillin-pot clavulanate 875-125 mg tablet 1 tablet PO Q12H Qty: 10 0RF No Action Centrum Women 18-400 mg-mcg Tablet 1 tablet PO DAILY levonorgestrel-ethinyl estrad [Vienva] 0.1-20 mg-mcg tablet 1 tablet PO DAILY Qty: 84 3RF Follow-up/Referrals: Yue Menard APRN [Primary Care Provider, Family Practice] - 2 Weeks Clinical Impression: Sinusitis Stand Alone Forms: Work/School Release IP Time of Disposition: 08:25
[2025-10-13 08:12] VITALS: BP 136/78; PULSE 100; RESP 16; TEMP 36.3; O2SAT 99
== END 2025-10-13 08:28 | disposition home or self-care (01) ==
PROVIDERS: Emergency Provider Nurse Practitioner; PCP Nurse Practitioner Adult Health
DX: J01.40 Acute pansinusitis, unspecified (principal)
CPT/HCPCS: 99213; G0463